=== PATIENT | male | born 1950 | race Hispanic/Latino ===

== ENCOUNTER 2024-07-08 08:18 | Day surgery (SDC) | payer OTHER, MEDICAID ==
[~2024-07-08] VITALS: Ht 170.2 cm; Wt 68.0 kg
[2024-07-08] VITALS (10 sets, daily range): BP systolic 112–137; BP diastolic 60–72; PULSE 50–59; RESP 16–18; TEMP 97.6–98.4
[2024-07-08] MEDS ORDERED: LACT-441 PO (09:53)
[2024-07-08] MEDS ORDERED: MEMA5TAB16 PO (09:53)
[2024-07-08] MEDS ORDERED: DONE-51 PO (09:53)
[2024-07-08] MEDS: 0.9%NACL 1000ML 1,000 ML IV ONE (09:56)
[2024-07-08] MEDS ORDERED: proPOFol 10 MG/ML 20ML VIAL IV ONE ×2 (10:18→10:27)
[2024-07-08] MEDS ORDERED: LIDOCAINE HCL 1% 20 ML VIAL ONE (10:19)
== END 2024-07-08 11:45 | disposition home or self-care (01) ==
LOC: DAH 08:18 → ENDO 08:18
PROVIDERS: ATTEND Internal Medicine Gastroenterology
DX: K59.09 Other constipation (principal); D12.5 Benign neoplasm of sigmoid colon; K21.00 Gastro-esophageal reflux disease with esophagitis, without bleeding; K29.50 Unspecified chronic gastritis without bleeding; K64.1 Second degree hemorrhoids; K57.30 Diverticulosis of large intestine without perforation or abscess without bleeding; K74.60 Unspecified cirrhosis of liver; K31.A11 Gastric intestinal metaplasia without dysplasia, involving the antrum; K76.6 Portal hypertension; K31.89 Other diseases of stomach and duodenum; I85.00 Esophageal varices without bleeding; K76.82 Hepatic encephalopathy; I10 Essential (primary) hypertension; E78.5 Hyperlipidemia, unspecified; F10.20 Alcohol dependence, uncomplicated; Z79.899 Other long term (current) drug therapy; Z86.0100 Personal history of colon polyps, unspecified
CPT/HCPCS: 45380; 45385; 43239; J7030; J2704 ×2; A4620; A4215 ×2; A4223; A4222; A4221; A4663; A4606; J3490